=== PATIENT | female | born 1975 | race Caucasian/White ===

== ENCOUNTER → 2016-11-17 | Outpatient (CLI) | payer OTHER ==
[~2016-11-17] MED LIST: AEROCHAMBER1 DEV IH; ALBUTEROL2 PUFFS/17 IN; AZITHROMYCIN250 MG PO; NAPROXEN SODIU500 M1 PO; NOMEDS *
--- NOTE | 2016-11-19 13:28 | RADIOLOGY REPORT PS360 ---
DIG MAMM-SCREEN MELI W/CAD CAD Screening COMPARISON: None, this is baseline INDICATION: None, this is baseline there is a history of breast cancer in the patient's paternal aunt and maternal grandmother TECHNIQUE: Standard CC and MLO images were obtained. R2 CAD reviewed. FINDINGS: Moderate fibroglandular densities are seen in the subareolar regions and central portions of both breasts. Glandular elements are slightly more prominent right breast than left. There is no suspicious lesion in either breast and there are no suspicious microcalcifications. IMPRESSION: Moderate breast density no suspicious lesion seen recommend yearly follow-up BI-RADS CATEGORY: 1_Negative RECOMMENDED FOLLOWUP: 12M 12 MONTH FOLLOW-UP (A letter has been sent to the patient regarding results of the study.)
== END ==
LOC: RAD 16:44
DX: Z12.31 Encounter for screening mammogram for malignant neoplasm of breast (principal)
CPT/HCPCS: G0202